=== PATIENT | male | born 1990 | race African-American/Black ===

== ENCOUNTER 2023-01-03 23:06 | Emergency (ER) | payer OTHER ==
[~2023-01-03] VITALS: Ht 172.7 cm; Wt 101.2 kg
[2023-01-03] MEDS ORDERED: CEPHALEXIN MONOHYDRATE 500 MG CAPSULE PO ONE ×2 (23:30→23:39)
[2023-01-03] MEDS ORDERED: SULFAMETH/TRIMETH 800/160 MG 1 UDTAB TABLET PO ONE (23:30)
[2023-01-03] MEDS ORDERED: IBUPROFEN 400 MG TABLET PO ONE (23:30)
[2023-01-03] MEDS ORDERED: HYDR-3972 PO (23:31)
[2023-01-03] MEDS ORDERED: SULF1TAB48 PO (23:31)
[2023-01-03] MEDS ORDERED: CEPH500T PO (23:31)
[2023-01-03] MEDS ORDERED: IBUP-1957 PO (23:31)
[2023-01-03 23:39] VITALS: BP 120/88
[2023-01-03] MEDS ORDERED: IBUPROFEN 400 MG TABLET ONE (23:39)
[2023-01-03] MEDS ORDERED: SULFAMETH/TRIMETH 800/160 MG 1 UDTAB TABLET ONE (23:41)
--- NOTE | 2023-01-03 23:47 | NUR ---
Patient discharged to home in stable condition. Written and verbal after care instructions given. Patient verbalizes understanding of instruction.
== END 2023-01-03 23:47 | disposition home or self-care (01) ==
LOC: ER 23:11
DX: L03.115 Cellulitis of right lower limb (principal); Z60.2 Problems related to living alone